=== PATIENT | female | born 1985 | race Two or more races ===

== ENCOUNTER 2019-02-22 11:06 | Emergency (ER) | payer OTHER, MEDICAID ==
[~2019-02-22] VITALS: Ht 152.4 cm; Wt 83.0 kg
[2019-02-22 11:46] VITALS: BP 131/83
== END 2019-02-22 12:31 | disposition home or self-care (01) ==
LOC: ER 11:06
DX: B34.9 Viral infection, unspecified (principal)
CPT/HCPCS: 81002; 81025

== ENCOUNTER → 2019-08-02 | Outpatient (CLI) | payer OTHER, MEDICAID ==
[2019-08-02 10:28] LABS: Basophils # (auto) 0.1 uL; Basophils % (auto) 1.2 % (0.0-2.0); Eosinophils # (auto) 0.1 uL; Eosinophils % (auto) 1.9 % (0.0-7.0); Hematocrit 41.7 % (36.0-46.0); Hemoglobin 14.2 g/dL (12.2-16.2); Lymphocytes # (auto) 1.7 uL; Lymphocytes % (auto) 30.9 % (10.0-50.0); Mean Corpuscular Hemoglobin 27.8 pg (28.0-32.0); Mean Corpuscular Hgb Conc. 34.1 g/dL (32.0-36.0); Mean Corpuscular Volume 81.5 fL (80.0-100.0); Monocytes # (auto) 0.4 uL; Neutrophils # (auto) 3.2 uL; Nucleated Red Blood Cells % 0.1 %; Platelet Count (auto) 240 10^3/uL (140-450); Red Blood Cells 5.12 10^6/uL (4.0-5.20); Red Cell Distribution Width 13.4 % (11.8-14.3); White Blood Cell 5.4 10^3/uL (4.4-10.8)
[2019-08-02 11:01] LABS: Urine Bacteria FEW /hpf (None Seen); Urine Blood Negative /uL (Negative); Urine Mucus FEW (None Seen); Urine Specific Gravity 1.022 (1.001-1.035); Urine WBC 13 /hpf (0 - 5)
[2019-08-02 11:15] LABS: Albumin 3.6 g/dL (3.4-5.0); Calcium 9.1 mg/dL (8.5-10.1); Potassium 3.9 mmol/L (3.5-5.1)
[2019-08-02 11:27] LABS: BUN/Creatinine Ratio 13.2; Bilirubin, Total 0.4 mg/dL (0.2-1.0); CRP High Sensitivity 0.63 mg/dL (< 0.3); Total Protein 7.9 g/dL (6.4-8.2)
[2019-08-02 11:29] LABS: Free T4 (Free Thyroxine) 0.75 ng/dL (0.89-1.76); T3 Total 1.44 ng/mL (0.60-1.81)
[2019-08-02 11:30] LABS: Free T3 3.03 pg/mL (2.3-4.2)
== END | disposition home or self-care (01) ==
LOC: LAB 09:30
PROVIDERS: ATTEND Internal Medicine
DX: E78.5 Hyperlipidemia, unspecified (principal); R07.9 Chest pain, unspecified
CPT/HCPCS: 36415; 80053; 80061; 81001; 82306; 82607; 83036; 84439; 84443; 84480; 84481; 85025; 86141

== ENCOUNTER → 2019-09-06 | Outpatient (CLI) | payer OTHER, MEDICAID ==
[~2019-09-06] VITALS: Ht 152.4 cm; Wt 81.6 kg
[~2019-09-06] MED LIST: ADENOSINE 69 MG in GIVE UN-DILUTED 0 ML IV STA
== END | disposition home or self-care (01) ==
LOC: XY 08:05
PROVIDERS: ATTEND Internal Medicine
DX: R07.89 Other chest pain (principal)
CPT/HCPCS: 78452; 93017; A9500; J0153

== ENCOUNTER → 2019-09-08 | Outpatient (CLI) | payer OTHER, MEDICAID | END | disposition home or self-care (01) | LOC: XYW 09:32 | PROVIDERS: ATTEND Internal Medicine | DX: R07.89 Other chest pain (principal) | CPT/HCPCS: 93306 ==